=== PATIENT | female | born 1930 | race Caucasian/White ===

== ENCOUNTER 2016-12-27 18:26 | Inpatient (IN) | payer OTHER, MEDICAID ==
[~2016-12-27] VITALS: Ht 160 cm; Wt 62.6 kg
[2016-12-27 18:26] VITALS: BP 114/61; PULSE 78; RESP 16; TEMP 98.2; O2SAT 95
--- NOTE | 2016-12-27 18:26 | NUR ---
Patient to ER bed 6 to gown for evaluation. Side rails up. Report given to CARLENE TERAN.
--- NOTE | 2016-12-27 18:26 | NUR ---
Regina tejeda in ED - 12/27/16 at 1902 by PRATIK KATEY DURAN at bedside examining patient.
--- NOTE | 2016-12-27 18:35 | NUR ---
ER at bedside examining patient.
--- NOTE | 2016-12-27 18:38 | NUR ---
ER Dr.DEVESH DURAN at bedside examining patient.
--- NOTE | 2016-12-27 18:38 | NUR ---
Pt brought in by BLS transport in stable condition. Pt sent by Dr. Reyes from [facility] for medical eval for poor circulation to left hand and failure to thrive. Pt present contracted bilat upper extremities. Pt has a hx of anemia, HTN, hypothyroid, encephalopathy. -sob -chest pain. No acute distress noted at this time, will continue to monitor
[2016-12-27] MEDS ORDERED: NS 500 ML IV SCH (18:42)
[2016-12-27 19:25] LABS: BLOOD GAS PH 7.435 (7.350-7.450)
[2016-12-27 19:26] LABS: ABG TOTAL HEMOGLOBIN 12.6 G/dL (12.0-18.0); BLOOD GAS COHb% 0.3 % (0.5-1.5); BLOOD GAS HHB 7.6 % (0.0-6.0); BLOOD O2Hb% 91.9 % (94.0-97.0)
[2016-12-27 19:48] LABS: BASOPHILS # (AUTO) 0.2 K/uL (0.0-0.2); BASOPHILS % (AUTO) 1.8 % (0.0-2.0); EOSINOPHILS # (AUTO) 0.3 K/uL (0.0-0.4); EOSINOPHILS % (AUTO) 3.5 % (0.0-4.0); HEMATOCRIT 36.3 % (36-48); HEMOGLOBIN 12.1 g/dL (12.0-16.0); LYMPHOCYTES # (AUTO) 1.7 K/uL (1.0-5.5); LYMPHOCYTES % (AUTO) 19.5 % (20.5-51.5); MEAN CORPUSCULAR HEMOGLOBIN 31 pg (27-31); MEAN CORPUSCULAR HGB CONC 33 % (32-36); MEAN CORPUSCULAR VOLUME 94 fL (79.0-98.0); MONOCYTES # (AUTO) 0.5 K/uL (0.0-1.0); MONOCYTES % (AUTO) 5.1 % (1.7-9.3); NEUTROPHILS # (AUTO) 6.2 K/uL (1.8-7.7); NEUTROPHILS % (AUTO) 70.1 % (40.0-70.0); PLATELET COUNT (AUTO) 353 K/uL (130-430); RED BLOOD CELL COUNT(AUTO) 3.88 MIL/uL (4.2-6.2); RED CELL DISTRIBUTION WIDTH 13.6 % (9.0-15.0); WHITE BLOOD COUNT (AUTO) 8.9 K/uL (4.8-10.8)
[2016-12-27 19:54] LABS: ANION GAP 8 (5-15); CALCIUM 9.4 mg/dL (8.4-11.0); CHLORIDE 98 mmol/L (98-107); CREATININE 1.01 mg/dL (0.55-1.30); GLUCOSE 105 mg/dL (70-99); POTASSIUM 4.7 mmol/L (3.5-5.1); SODIUM SERUM 131 mmol/L (136-145); UREA NITROGEN, BLOOD 28 mg/dL (8-21)
[2016-12-27 19:59] LABS: ALANINE AMINOTRANSFERASE 50 U/L (12-78); ALBUMIN 3.5 g/dL (3.4-4.8); ASPARTATE AMINOTRANSFERASE 26 U/L (10-37); TOTAL BILIRUBIN 0.4 mg/dL (0.0-1.0)
[2016-12-27 20:01] LABS: INR 0.9 (0.8-1.2); PROTHROMBIN TIME 9.7 SECS (9.5-12.5)
[2016-12-27] MEDS ORDERED: ASCO500T20 GT (20:24)
[2016-12-27] MEDS ORDERED: FERR220S3 GT (20:25)
[2016-12-27] MEDS ORDERED: FAMO40TA7 GT (20:27)
[2016-12-27] MEDS ORDERED: SODI1TAB3 GT (20:27)
[2016-12-27] MEDS ORDERED: DOCU-144 GT (20:28)
[2016-12-27] MEDS ORDERED: LEVO50TA8 GT (20:28)
[2016-12-27] MEDS ORDERED: MEMA10TA12 GT (20:30)
[2016-12-27] MEDS ORDERED: HYDR-1189 GT (20:30)
[2016-12-27] MEDS ORDERED: DICL50TA9 GT (20:31)
[2016-12-27] MEDS ORDERED: MAGN400O4 GT (20:33)
[2016-12-27] MEDS ORDERED: NA P118E RC (20:34)
[2016-12-27] MEDS ORDERED: DULR10 RC (20:34)
[2016-12-27] MEDS ORDERED: ACET-2165 GT (20:35)
[2016-12-27] MEDS ORDERED: CAT.1 GT (20:36)
[2016-12-27] MEDS ORDERED: ACET160S2 GT (20:39)
[2016-12-27] MEDS ORDERED: LOSA50TA3 GT (20:40)
[2016-12-27] MEDS ORDERED: MULT GT (20:40)
[2016-12-27] MEDS ORDERED: CALC500T3 GT (20:40)
[2016-12-27] MEDS ORDERED: PETR5OIN TP (20:42)
[2016-12-27] MEDS ORDERED: NA PHOS,M-B/NA PHOS,DI-BA 118 ML (FLEET ENEMA) RC ONE (21:00)
[2016-12-27 21:11] LABS: BILIRUBIN,URINE NEGATIVE (NEGATIVE); BLOOD, URINE NEGATIVE (NEGATIVE); CLARITY/URINE CLEAR (CLEAR); COLOR,URINE YELLOW (YELLOW); GLUCOSE,URINE NEGATIVE (NEGATIVE); KETONES,URINE NEGATIVE (NEGATIVE); LEUKOCYTE ESTERASE ,URINE NEGATIVE (NEGATIVE); NITRITE, URINE NEGATIVE (NEGATIVE); PROTEIN URINE NEGATIVE (NEGATIVE); UROBILINOGEN,URINE 0.2 (0.2-1.0)
--- NOTE | 2016-12-27 21:20 | NUR ---
Patient will be admitted to care of Dr. Nader Orr. Admitted to med surg unit. Will go to room 102-a. Belongings list completed. Summary report printed. Report given to PARUL Owusu.
--- NOTE | 2016-12-27 21:21 | NUR ---
CONSULTATION PAGED REASON FOR CONSULTATION:ABDOMINAL PAIN WAS CONSULT CALLED?Y PERSON WHO WAS NOTIFIED:SNEHA CONSULTING PHYSICIAN:ANA PAULA ELIZONDO VP HR DIVERSITY SPECIALTY:GI VP HR DIVERSITY PHONE NUMBER:[phone]
--- NOTE | 2016-12-27 21:21 | NUR ---
ADMISSION NOTE Received patient from ER via gurney. Patient admitted with diagnosis of Abdominal pain. Patient is awake. Patient oriented to hospital room, call light, toileting, pain management and safety. Patient informed that Darlene will be her nurse and that their room number is 102A. Personal belongings checked and Belongings List documented. Call light within reach.
--- NOTE | 2016-12-27 21:25 | NUR ---
CONSULTATION PAGED REASON FOR CONSULTATION:POOR CIRCULATION TO LEFT HAND WAS CONSULT CALLED?Y PERSON WHO WAS NOTIFIED:CAMILLE CONSULTING PHYSICIAN:AJIT AN SPECTROGRAPH OPERATOR SPECIALTY:PLASTIC SURGEON SPECTROGRAPH OPERATOR PHONE NUMBER:[phone]
--- NOTE | 2016-12-27 21:31 | NUR ---
initial note pt. received, non verbal. VSS. IV access to left ac. no redness or swelling at the site. G tube noted, no redness or swelling around the site. dressing is dry. will start feeding as ordered. 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 heels are elevated and foam boots are in place. some redness on the heels, but skin is intact. noble catheter draining to gravity. pt. is on air mattress. will continue to monitor for changes. safety and fall precautions in place. call light in reach, bed in lowest position.
[2016-12-27 21:37] VITALS: BP 137/80; PULSE 80; RESP 18; TEMP 96.6; O2SAT 94
--- NOTE | 2016-12-27 22:01 | NUR ---
rounds fleet enema done, pt. had x1 BM. no s.s of distress or sob. no facial grimacing indicating any pain. will continue to monitor. heels elevated, g tube feeding infusing well. call light in reach, bed in lowest position.
[2016-12-27] MEDS ORDERED: cloNIDine HCL 0.1 MG TABLET GT PRN (23:45)
[2016-12-27] MEDS ORDERED: ASCORBIC ACID 500 MG TABLET GT ONE (23:45)
[2016-12-27] MEDS ORDERED: HYDROcodone/ACETAMIN 5-325 MG TAB (NORCO/ VICODIN) GT PRN (23:45)
[2016-12-27] MEDS ORDERED: MILK OF MAGNESIA 30 ML UDC GT PRN (23:45)
[2016-12-27] MEDS ORDERED: ACETAMINOPHEN 325 MG TABLET GT PRN (23:45)
[2016-12-27] MEDS ORDERED: NA PHOS,M-B/NA PHOS,DI-BA 118 ML (FLEET ENEMA) RC PRN (23:45)
[2016-12-27] MEDS ORDERED: BISACODYL 10 MG/SUPPOSITORY RC PRN (23:45)
--- NOTE | 2016-12-27 23:51 | NUR ---
CONSULTATION PAGED REASON FOR CONSULTATION:CONTRACTURES WAS CONSULT CALLED?Y PERSON WHO WAS NOTIFIED:CLAIRE CONSULTING PHYSICIAN:BRIAN LUCERO STRATEGIC PLANNING ANALYST SPECIALTY:NEURO STRATEGIC PLANNING ANALYST PHONE NUMBER:[phone]
--- NOTE | 2016-12-28 00:10 | NUR ---
ROUNDS PT. RESTING IN BED. NO FACIAL GRIMACING INDICATING ANY PAIN. NO S/S OF SOB OR DISTRESS. TUBE FEEDING INFUSING WELL ORDERED. HEELS ELEVATED ON PILLOW. WILL CONTINUE TO MONITOR. SAFETY AND FALL PRECAUTIONS IN PLACE. CALL LIGHT IN REACH. BED IN LOWEST POSITION.
[2016-12-28 00:14] VITALS: BP 122/60; PULSE 71; RESP 18; TEMP 96.5; O2SAT 95
[2016-12-28] MEDS ORDERED: LACTULOSE 20 GM/30 ML UDC PO ONE (00:15)
--- NOTE | 2016-12-28 02:31 | NUR ---
PAGED PAGED BRY FLYNN AT [phone] SPOKE WITH CLAIRE.
[2016-12-28 04:00] VITALS: BP 127/70; PULSE 74; RESP 18; TEMP 97.3; O2SAT 94
--- NOTE | 2016-12-28 04:05 | NUR ---
ROUNDS PT. IN BED WITH EYES OPEN. NO FACIAL GRIMACING INDICATING ANY PAIN. NO SIGNS OF ACUTE DISTRESS. HEELS ELEVATED ON PILLOW. WILL CONTINUE TO MONITOR. CALL LIGHT IN REACH, BED IN LOWEST POSITION.
--- NOTE | 2016-12-28 05:55 | NUR ---
MD CALL DR. DURAN WAS PAGED IN ORDER TO CLARIFY G TUBE FEEDING HE CANCELLED THE ORDER FOR THE ONE HE INITIALLY PUT IN. NO ACTIVE DIETARY ORDER EXISTS AT THIS TIME. WILL AWAIT HIS CALL BACK.
--- NOTE | 2016-12-28 06:35 | NUR ---
PT. RESTING IN BED WITH EYES OPEN. NO FACIAL GRIMACING INDICATING PAIN. G TUBE FEEDING INFUSING WELL. DR. DURAN HAS NOT CALLED BACK TO VERIFY TUBE FEEDING ORDER. HEELS FLOATING.ALL NECESSARY NEEDS WERE MET, SAFETY AND FALL PRECAUTIONS MAINTAINED. WILL ENDORSE CARE TO AM NURSE. CALL LIGHT IN REACH.
[2016-12-28 07:05] LABS: BASOPHILS # (AUTO) 0.1 K/uL (0.0-0.2); EOSINOPHILS # (AUTO) 0.3 K/uL (0.0-0.4); EOSINOPHILS % (AUTO) 2.9 % (0.0-4.0); HEMOGLOBIN 11.1 g/dL (12.0-16.0); LYMPHOCYTES # (AUTO) 1.2 K/uL (1.0-5.5); LYMPHOCYTES % (AUTO) 14.2 % (20.5-51.5); MEAN CORPUSCULAR HEMOGLOBIN 32 pg (27-31); MEAN CORPUSCULAR HGB CONC 34 % (32-36); MEAN CORPUSCULAR VOLUME 95 fL (79.0-98.0); MONOCYTES # (AUTO) 0.4 K/uL (0.0-1.0); MONOCYTES % (AUTO) 4.7 % (1.7-9.3); NEUTROPHILS # (AUTO) 6.7 K/uL (1.8-7.7); NEUTROPHILS % (AUTO) 77.2 % (40.0-70.0); PLATELET COUNT (AUTO) 295 K/uL (130-430); RED BLOOD CELL COUNT(AUTO) 3.49 MIL/uL (4.2-6.2); RED CELL DISTRIBUTION WIDTH 13.6 % (9.0-15.0); WHITE BLOOD COUNT (AUTO) 8.7 K/uL (4.8-10.8)
--- NOTE | 2016-12-28 07:20 | NUR ---
initial notes: pt on bed sleeping. stable. gtube in placed. report received at bedside.
[2016-12-28 07:28] LABS: ANION GAP 8 (5-15); CALCIUM 8.9 mg/dL (8.4-11.0); CHLORIDE 101 mmol/L (98-107); CREATININE 0.96 mg/dL (0.55-1.30); GLUCOSE 127 mg/dL (70-99); POTASSIUM 4.6 mmol/L (3.5-5.1); SODIUM SERUM 134 mmol/L (136-145); UREA NITROGEN, BLOOD 26 mg/dL (8-21)
[2016-12-28 07:53] LABS: THYROID STIMULATING HORMONE 1.89 uIu/mL (0.34-4.82)
--- NOTE | 2016-12-28 08:25 | NUR ---
Nutrition Note [place] scale of 10 noted. Pt admitted with abd pain. Diet: TF Isosource 1.5 at 45 ml/hr, Free Water Flush: 10 ml via G-tube BMI: 24.4 kg/m2 RD to follow up per nutrition care standards.
[2016-12-28 08:48] VITALS: BP 143/78; PULSE 82; RESP 14; TEMP 97.2; O2SAT 96
[2016-12-28] MEDS ORDERED: DOCUSATE SODIUM 100 MG CAPSULE PO SCH (09:00)
--- NOTE | 2016-12-28 10:00 | NUR ---
gtube order: Dr. Orr returned call and clarified the gtube order.
[2016-12-28] MEDS: LACTULOSE 20 GM/30 ML UDC PO SCH ×3 (10:17→21:45)
[2016-12-28] MEDS: ASCORBIC ACID 500 MG TABLET GT SCH (10:18)
[2016-12-28] MEDS: DICLOFENAC SODIUM 25 MG TABLET.DR GT SCH ×2 (10:18→21:45)
[2016-12-28] MEDS: SODIUM CHLORIDE 500 MG TABLET GT SCH (10:18)
[2016-12-28] MEDS: FAMOTIDINE 20 MG TABLET GT SCH ×2 (10:18→21:45)
[2016-12-28] MEDS: MEMANTINE HCL 5 MG TABLET GT SCH ×2 (10:19→21:45)
[2016-12-28] MEDS: LOSARTAN POTASSIUM 50 MG TABLET (COZAAR) GT SCH (10:19)
[2016-12-28] MEDS: CALCIUM 500 MG/TAB GT SCH ×2 (10:19→21:45)
[2016-12-28] MEDS: MULTIVITAMINS TAB 1 TABLET GT SCH (10:19)
[2016-12-28] MEDS: LEVOTHYROXINE SODIUM 0.05 MG TABLET GT SCH (10:19)
[2016-12-28] MEDS ORDERED: COMMUNICATION ORDER XX ONE (12:00)
--- NOTE | 2016-12-28 12:00 | NUR ---
rounds: pt on bed awake, non verbal. no distress noted.
[2016-12-28 12:22] VITALS: Ht 160 cm; Wt 62.6 kg
[2016-12-28 13:03] VITALS: BP 137/71; PULSE 86; RESP 17; TEMP 97.8; O2SAT 97
--- NOTE | 2016-12-28 15:00 | NUR ---
rounds: pt on bed sleeping. no distress noted.
[2016-12-28 16:00] VITALS: BP 167/81; PULSE 88; RESP 18; TEMP 97.8; O2SAT 96
--- NOTE | 2016-12-28 16:06 | NUR ---
CALLED DR AJIT SOSA, RE: POOR BLOOD CIRCULATION OF THE HAND, TO REMIND OF THE CONSULT GIVEN TO HIM YESTERDAY. SPOKE TO JOVANY
--- NOTE | 2016-12-28 17:00 | NUR ---
Pj rounds: Dr. Brown seen the pt with new order.
[2016-12-28 19:30] VITALS: BP 141/60; PULSE 85; RESP 18; TEMP 99.2
--- NOTE | 2016-12-28 19:30 | NUR ---
INITIAL NOTE Patient resting on the bed with eyes closed. Respiration even and unlabored. No acute distress. Skin warm and dry to touch. Abd distended but soft with bowel sound present. SL intact to LAC, no redness, no swelling. GT intact, patent, no residual. On Isosource 1.5 at 45ml/hr, tolerated well. HOB elevated. F/C intact, drain gravity with alex color of urine. Safety measure maintained. Bed in low position, side rails up, bed alarm on. Call light within reached. Will continue to monitor.
--- NOTE | 2016-12-28 19:30 | NUR ---
closing notes: pt on bed. stable. i.v. access patent. gtube in placed. report given at bedside.
--- NOTE | 2016-12-28 21:20 | NUR ---
ROUND Patient resting on the bed with eyes closed. No acute distress. Respiration even and unlabored. HOB is elevated. Continue on GTF. Safety measure maintained. Call light within reached. Bed in low position, side rails up, bed alarm on. Will continue to monitor.
--- NOTE | 2016-12-28 23:25 | NUR ---
ROUND Patient resting on the bed comfortable. No acute distress. Respiration even and unlabored. HOB is elevated. Continue on GTF, tolerated well. Safety measure maintained. Call light within reached. Bed in low position, side rails up, bed alarm on. Will continue to monitor.
[2016-12-29 00:25] VITALS: BP 116/50; PULSE 73; RESP 20; TEMP 97.8; O2SAT 97
--- NOTE | 2016-12-29 01:10 | NUR ---
ROUND Patient sleeping comfortable. No acute distress. Respiration even and unlabored. HOB is elevated. Safety measure maintained. Call light within reached. Bed in low position, side rails up, bed alarm on. Will continue to monitor.
--- NOTE | 2016-12-29 03:07 | NUR ---
ROUND Patient sleeping comfortable. Respiration even and unlabored. HOB is elevated. Continue on GT feeding, tolerated well. Safety measure maintained. Bed in low position, side rails up, bed alarm on. Call light within reached. Will continue to monitor.
[2016-12-29 03:41] VITALS: BP 100/58; PULSE 74; RESP 18; TEMP 97; O2SAT 97
--- NOTE | 2016-12-29 04:26 | NUR ---
ROUND Patient sleeping comfortable. Respiration even and unlabored. HOB is elevated. Safety measure maintained. Bed in low position, side rails up, bed alarm on. Call light within reached. Will continue to monitor.
--- NOTE | 2016-12-29 05:29 | NUR ---
ROUND Patient sleeping comfortable. Respiration even and unlabored. HOB is elevated. Continue on GT feeding, tolerated well. No s/s of aspiration. Safety measure maintained. Bed in low position, side rails up, bed alarm on. Call light within reached. Continue to monitor.
--- NOTE | 2016-12-29 06:54 | NUR ---
CLOSING NOTE Patient resting on the bed with eyes closed. Respiration even and unlabored. No acute distress. Skin warm and dry to touch. SL intact to LAC, no redness, no swelling. GT intact, patent, no residual. On Isosource 1.5 at 45ml/hr, tolerated well. No s/s of aspiration. No nausea or vomiting noted. HOB elevated. F/C intact, drain gravity with alex color of urine. All meeds met. Hourly rounding during shift. Safety measure maintained. Bed in low position, side rails up, bed alarm on. Call light within reached. Will endorse to morning shift nurse.
--- NOTE | 2016-12-29 07:20 | NUR ---
initial notes: pt on bed sleeping. no distress noted. i.v. access patent. gtube in placed. scd in placed. report received at bedside.
[2016-12-29 07:52] LABS: ALBUMIN 3.1 g/dL (3.4-4.8); BILIRUBIN,DIRECT 0.1 mg/dL (0.0-0.3); TOTAL BILIRUBIN 0.2 mg/dL (0.0-1.0); TOTAL PROTEIN, SERUM 6.9 g/dL (6.4-8.3)
[2016-12-29 08:00] VITALS: BP 131/72; PULSE 14; RESP 14; TEMP 98.2; O2SAT 94
[2016-12-29] MEDS: DOCUSATE SODIUM 100 MG/10 ML UDC GT SCH (09:23)
[2016-12-29] MEDS: LACTULOSE 20 GM/30 ML UDC PO SCH ×3 (09:23→21:29)
[2016-12-29] MEDS: FAMOTIDINE 20 MG TABLET GT SCH ×2 (09:24→21:30)
[2016-12-29] MEDS: MEMANTINE HCL 5 MG TABLET GT SCH ×2 (09:24→21:30)
[2016-12-29] MEDS: SODIUM CHLORIDE 500 MG TABLET GT SCH (09:24)
[2016-12-29] MEDS: LOSARTAN POTASSIUM 50 MG TABLET (COZAAR) GT SCH (09:25)
[2016-12-29] MEDS: ASCORBIC ACID 500 MG TABLET GT SCH (09:25)
[2016-12-29] MEDS: DICLOFENAC SODIUM 25 MG TABLET.DR GT SCH ×2 (09:25→21:30)
[2016-12-29] MEDS: CALCIUM 500 MG/TAB GT SCH ×2 (09:25→21:29)
[2016-12-29] MEDS: MULTIVITAMINS TAB 1 TABLET GT SCH (09:26)
[2016-12-29] MEDS: LEVOTHYROXINE SODIUM 0.05 MG TABLET GT SCH (09:26)
--- NOTE | 2016-12-29 09:30 | NUR ---
rounds: pt placed on NPO for the abdomen ultrasound.
--- NOTE | 2016-12-29 10:24 | NUR ---
DISCHARGE PLANNING DC planning order back to SNF possibly today. Faxed SNF referral [phone]. Will follow up. Addendum: 12/29/16 at 1305 by Barbi Panda DP DC order for [place] evaluation and transfer. Faxed DC Planning order to [facility] office [phone] notified Yeimi Rdz who will evaluate patient today. Addendum: 12/29/16 at 1703 by Barbi Panda DP Spoke with Yeimi Rdz who stated patient does not meet LTAC level of care. Called [facility] spoke with Sin in admitting who stated currently under review and stated will follow up with MD due to MD telling facility patient being placed at LTAC. Jose Avor both made aware patient does not meet criteria for LTAC and will follow up with . Pending bed assignment at [facility]. Meanwhile; Faxed SNF referral to [phone]. Spoke with Greta who will come and evaluate patient.
--- NOTE | 2016-12-29 11:00 | NUR ---
rounds: pt on bed sleeping. no distress noted.
[2016-12-29 11:27] VITALS: BP 131/73; PULSE 76; RESP 19; TEMP 96.2; O2SAT 93
--- NOTE | 2016-12-29 12:00 | NUR ---
Pj rounds: informed Dr. Orr patient having blood in the urine with an order for consult.
--- NOTE | 2016-12-29 13:04 | NUR ---
CALLED UROLOGY CONSULT TO [facility], RE: HEMATURIA. PAGED HIM DIRECTLY, CALLED AGAIN HIS OFFICE. SPOKE TO COURTNEY
--- NOTE | 2016-12-29 13:30 | NUR ---
UA: UA sample sent to lab for urinalysis.
--- NOTE | 2016-12-29 13:34 | NUR ---
CALLED AGAIN DR. AJIT SOSA, F/U CONSULT ON HIS 3RD DAY NOT SEEING OR ACKNOWLEDGING THE CONSULT. SPOKE TO THUY
--- NOTE | 2016-12-29 14:23 | NUR ---
CALLED AGAIN THE OFFICE OF DR AJIT SOSA AND WAS INFORMED BY THE CATEGORY ANALYST BLU THAT DR SOSA IS OUT OF AREA AND MIGHT BE ABLE TO SEE THE PT ON SUNDAY. WILL CALL ATTENDING Elton GEORGES DR
[2016-12-29 15:37] LABS: BILIRUBIN,URINE 1+ (NEGATIVE); BLOOD, URINE 3+ (NEGATIVE); CLARITY/URINE CLOUDY (CLEAR); GLUCOSE,URINE NEGATIVE (NEGATIVE); KETONES,URINE TRACE (NEGATIVE); LEUKOCYTE ESTERASE ,URINE 3+ (NEGATIVE); NITRITE, URINE POSITIVE (NEGATIVE); PH,URINE 6.5 (5.0-8.0); PROTEIN URINE 2+ (NEGATIVE)
[2016-12-29 15:38] LABS: COLOR,URINE BROWN (YELLOW)
[2016-12-29 15:59] VITALS: BP 143/79; PULSE 85; RESP 16; TEMP 96.9; O2SAT 95
--- NOTE | 2016-12-29 16:00 | NUR ---
Pj informed: Informed Dr. Orr of the consult Dr. Martin out of the area. He said to refer to caser in for rehab. Informed Silverlight Developer.
[2016-12-29 17:30] LABS: BACTERIA,URINE MANY /HPF (None Seen); RBC,URINE >100 /HPF (0-3); WBC,URINE >100 /HPF (0-3)
--- NOTE | 2016-12-29 17:30 | NUR ---
Adelina Marketing Driector: Beatty Pest Control Chemical Technician seen the pt. The [facility] called and informed the Pest Control Chemical Technician that there is no bed available for the pt. Called and Informed Dr. Orr.
[2016-12-29 17:31] LABS: MUCUS,URINE None Seen /LPF (None Seen)
[2016-12-29 17:32] LABS: URINE AMORPHOUS URATE 2+ /HPF (None Seen)
--- NOTE | 2016-12-29 17:32 | NUR ---
Rec'd call from Ken, facility administrator at [facility] [place]-He said he is willing to take pt back, however, they sent the patient to us for primary concern of bilat hand/arm contractures, which has not been addressed and that's why they sent pt to us in the first place. He asked that we inform Dr. Jose Orr of this. I called Dr. Geo Martin's exchange to ask which MD is covering for him while he is out of town, the exchange girl said he isn't out of town and will page him to our nursing unit for this consult. I let nurse Misa Phillips know this, and she will inform Dr. Geo Orr of this, also. I will leave note for our cm to f/u tomorrow on this also. Dr. Orr had called me earlier around 1640, and said Emil, facility administrator at [facility] will accept pt. dutch Landon, called and Nettie will come evaluate pt tonight.
--- NOTE | 2016-12-29 18:00 | NUR ---
Dr. aMrtin called: Dr. Martin, consult, stated he is not accepting in pt visits in [place]. The pt can go to his wound office. He also said he is the plastic and hand surgeon. He is not a vascular surgeon. He gave his cell number to pass it to Dr. Orr. Called and informed Dr. Orr.
[2016-12-29 19:10] VITALS: BP 119/65; PULSE 68; RESP 19; TEMP 97.8; O2SAT 95
--- NOTE | 2016-12-29 19:10 | NUR ---
INITIAL ROUNDS RECVD PT IN BED ASLEEP BUT EASILY AWAKEN BY TOUCH. PT IS NON VERBAL A/A/OX1. NO C/O PAIN AND NO DISTRESS NOTED @ THIS TIME. V/S 119/65, 97.8,68,19,95% RA. IV NOTED TO L ELBOW G 22, NO INFILTRATE, WITH GOOD BLOOD RETURN. GTUBE PATENT WITH ISOSOURCE RUNNING @45CC/HR. F/C NOTED WITH SHERRIE COLORED URINE NOTED IN THE BAG. BUE ARE CONTRACTED AND BLE ARE WEAK. BED IN LOW POSITION WITH CALL LIGHT WITHIN REACH; WILL CONT TO MONITOR.
--- NOTE | 2016-12-29 19:30 | NUR ---
closing notes: pt on bed sleeping. no distress noted. needs attended. report given at bedside.
[2016-12-29] MEDS ORDERED: LEVOFLOXACIN 250 MG/D5W 50 ML IV SCH (21:00)
--- NOTE | 2016-12-29 21:10 | NUR ---
PARTIAL BED BATH PARTIAL BED BATH WAS RENDERED WITH ASSISTANCE FROM STACIA. NO S/S OF PAIN OR ANY DISTRESS, WILL CONT TO MONITOR.
--- NOTE | 2016-12-29 23:10 | NUR ---
ROUNDS PT IS RESTING COMFORTABLY @ THIS TIME. NO C/O PAIN AND NO DISTRESS NOTED. BED IN LOW POSITION WITH CALL LIGHT WITHIN REACH; WILL CONT TO MONITOR.
[2016-12-30] VITALS: BP 131/94; PULSE 74; RESP 16; TEMP 98; O2SAT 96
--- NOTE | 2016-12-30 01:10 | NUR ---
ROUNDS PT IS RESTING COMFORTABLY @ THIS TIME. REPOSITIONED IN BED FOR COMFORT. NO C/O PAIN AND NO DISTRESS NOTED. BED IN LOW POSITION WITH CALL LIGHT WITHIN REACH; WILL CONT TO MONITOR.
--- NOTE | 2016-12-30 02:20 | NUR ---
BED BATH PT HAD A LG AMOUNT OF WATERY STOOL. PARTIAL BED BATH WAS RENDERED. NO C/O PAIN AND NO SOB NOTED. CALL LIGHT WITHIN REACH, WILL CONT TO MONITOR.
[2016-12-30 04:00] VITALS: BP 136/74; PULSE 77; RESP 16; TEMP 98.3; O2SAT 96
--- NOTE | 2016-12-30 04:20 | NUR ---
ROUNDS PT IS RESTING COMFORTABLY @ THIS TIME. NO S/S OF PAIN AND NO RESPI DISTRESS NOTED. CALL LIGHT WITHIN REACH, WILL CONT TO MONITOR.
--- NOTE | 2016-12-30 06:15 | NUR ---
AM CARE PERFORMED FRANCHESCA CARE AND ORAL TO PT. NO C/O PAIN AND NO DISTRESS NOTED. CALL LIGHT WITHIN REACH, WILL CONT TO MONITOR.
--- NOTE | 2016-12-30 06:51 | NUR ---
FINAL NOTES PT IS RESTING @ THIS TIME. NO S/S OF PAIN OR DISTRESS NOTED. V/S ARE WNL. ALL NEEDS MET AND ANTICIPATED BY NOC NURSES. BED IN LOW POSITION WITH CALL LIGHT WITHIN REACH. ENDORSED.
[2016-12-30 07:48] LABS: ALBUMIN 3.2 g/dL (3.4-4.8); BILIRUBIN,DIRECT 0.2 mg/dL (0.0-0.3); TOTAL BILIRUBIN 0.4 mg/dL (0.0-1.0)
--- NOTE | 2016-12-30 08:00 | NUR ---
AM Initial Notes Pt aaox1, non verbal but makes sounds. No signs of facial grimacing for pain or discomfort. No sob, difficulty breathing or distress noted. G-tube in place with 20cc residual noted. G-tube is clamped for abdominal xray. Greco catheter in place. Bilateral hands are contracted. Repositioned and kept comfortable. Fall and safety precautions enforced. Will monitor.
[2016-12-30 08:15] VITALS: BP 162/82; PULSE 77; RESP 20; TEMP 98.4; O2SAT 95
--- NOTE | 2016-12-30 10:00 | NUR ---
Rounds Pt asleep. No signs of facial grimacing for pain or discomfort. No distress noted. Repositioned and kept comfortable. Will monitor.
[2016-12-30] MEDS: LACTULOSE 20 GM/30 ML UDC PO SCH ×2 (10:42→18:01)
[2016-12-30] MEDS: SODIUM CHLORIDE 500 MG TABLET GT SCH (10:42)
[2016-12-30] MEDS: DICLOFENAC SODIUM 25 MG TABLET.DR GT SCH (10:42)
[2016-12-30] MEDS: DOCUSATE SODIUM 100 MG/10 ML UDC GT SCH (10:42)
[2016-12-30] MEDS: ASCORBIC ACID 500 MG TABLET GT SCH (10:43)
[2016-12-30] MEDS: MULTIVITAMINS TAB 1 TABLET GT SCH (10:43)
[2016-12-30] MEDS: CALCIUM 500 MG/TAB GT SCH (10:43)
[2016-12-30] MEDS: MEMANTINE HCL 5 MG TABLET GT SCH (10:43)
[2016-12-30] MEDS: FAMOTIDINE 20 MG TABLET GT SCH (10:44)
[2016-12-30] MEDS: LOSARTAN POTASSIUM 50 MG TABLET (COZAAR) GT SCH (10:44)
[2016-12-30] MEDS: LEVOTHYROXINE SODIUM 0.05 MG TABLET GT SCH (10:44)
--- NOTE | 2016-12-30 11:00 | NUR ---
CM DC PLANNING CM EVALUATED Pt IN ROOM THIS A.M. TO ASCERTAIN THE AMOUNT OF DIMINISHED CIRCULATION FROM Pt's DOMINGO. UPPER EXTREMITY CONTRACTURES. BOTH UPPER EXTREMITIES WERE VERY TENSE WITH Pt's HANDS NEAR HER MOUTH; SKIN COLOR WAS PINK AND Pt HAS STRONG BRACHIAL AND RADIAL PULSES; THERE WAS MINIMAL SWELLING NOTED THAT COULD INDICATE A DECREASE IN VENOUS CIRCULATION. IT WAS UNDERSTOOD THAT [facility] HAD AN AVAILABLE BED FOR THE Pt. BOB LIAISON/SIMONE WAS HERE TO EVALUATE Pt FOR BOB ADMISSION. HOWEVER, Pt IS ONLY ON ONE IV ABX, LEVAQUIN, FOR UTI; AND, SHE DOESN'T MEET CRITERIA FOR LTAC ADMISSION. CM CONTACTED LUCI AT [facility] AND DISCUSSED Pt COMING BACK THERE OR GOING TO ANOTHER FACILITY. PER LUCI, THE NEPHEW, ANGI DYSON, WANTS THE Pt TO BE AT [facility]; AND, CM WOULD NEED TO TALK WITH HIM PRIOR TO [facility] SENDING THE Pt TO ANOTHER FACILITY. PER LUCI, AND HER CONTACT WITH KARI AT FACILITY, IF ANOTHER FACILITY WOULD ACCEPT THE Pt, IT WOULD BE OK FOR Pt TO GO TO A DIFFERENT FACILITY IF NEPHEW WAS IN AGREEMENT. CM CONTACTED [facility]; UNABLE TO REMEMBER NAME OF WHO I SPOKE WITH (WAS LIKELY THE CLINICAL NURSING COORDINATOR); BUT CM UNDERSTOOD THAT THEY DO NOT HAVE ANY BEDS TODAY; WILL LIKELY NOT HAVE ANY BEDS UNTIL SUNDAY; AND, THEY DO NOT HAVE CENTRIFUGAL CASTING MACHINE TENDER CARE BEDS --> THEIR PLAN WAS TO LOCATE A CENTRIFUGAL CASTING MACHINE TENDER CARE FACILITY FOR THE PATIENT AND ULTIMATELY TRANSFER HER THERE. SHARMIN CALLED TO DR. TEJA SOSA, PLASTIC SURGERY, TO SPEAK WITH HIM ABOUT HOW Pt COULD BE EVALUATED BY HIM AN OUT-Pt. MD WAS NOT AVAILABLE; LEFT MESSAGE REQUESTING A CALL BACK. CM DISCUSSED DISCHARGE POC WITH CM DIRECTOR/DEWAYNE ABOUT THERE BEING NO BEDS AVAILABLE AT [facility]; AND, PER DEWAYNE'S RECOMMENDATION, SHARMIN/MIA CONTACTED KARI FROM [facility] AND LEFT MESSAGE AT [phone] TO DISCUSS DC PLAN WITH HIM; THIS MESSAGE WAS LEFT AROUND 1-1:[address] TEJA DURAN WAS AT UNIT TO EVAL Pt; SPOKE WITH SHARMIN/MIA ABOUT DC POC; AND, DR. TOMAS WAS ALSO PRESENT TO DISCUSS THE Pt's CONTRACTURES FROM A SURGICAL & VASCULAR STANDPOINT. DR. DURAN IS OK WITH Pt RETURNING BACK TO SNF[facility] SINCE THERE ARE NO BEDS AT [facility]; AND, HAVING OUT-Pt FOLLOW-UP WITH DR. SOSA FOR THE MANAGEMENT OF THE CONTRACTURES. PER DR. DURAN, Pt CAN BE DC'D TODAY WITH SAME MEDS WHEN BED HAS BEEN OBTAINED. CM WAS WITH DR. TOMAS WHEN HE EVALUATED THE Pt. DR. TOMAS STATED HE HAD PREVIOUSLY AMPUTATED ONE OF THE Pt's FINGERS DUE TO ULCERATION FROM A CONTRACTURE. DR. TOMAS STATED THERE ARE NO CURRENT ULCERATIONS VISIBLE FROM THE Pt's CONTRACTURES; HIS RECOMMENDATION WOULD BE FOR THE ARMS TO BE AMPUTATED IF THEY ARE CAUSING A PROBLEM FOR SKIN CARE MGMT. DR. TOMAS ALSO CALLED TO THE Pt's NEPHEW/ANGI DYSON TO DISCUSS HIS ASSESSMENT AND RECOMMENDATION AND DR. TOMAS STATED THE NEPHEW IS NOT INTERESTED IN THE Pt HAVE ANY OTHER AMPUTATIONS AT THIS TIME. 1553: NO CALL BACK FROM [employer]; CM SENT TEXT MESSAGE TO [employer] TO CONTACT THIS CM ABOUT TRANSFERRING Pt BACK TO [facility] TODAY. 1555: CM RECEIVED A CALL BACK FROM DR. 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 DR. SOSA STATED HE HAD NOT SPOKEN WITH ANY OF THE Pt's MDs ABOUT THE REFERRAL. ADDITIONALLY, DR. SOSA STATED HE DOES NOT DO IN-Pt CONSULTATIONS DUE TO HIS HEAVY OFFICE WORK LOAD AND HE SEES Pts AT THE [facility]: [phone] (PROVIDED BY DR. SOSA). DR. SOSA STATED HIS RECOMMENDATION IS FOR THE SNF RESIDENCE STAFF TO CONTACT THE WOUND CARE CLINIC TO ARRANGE AN OUT-Pt APPOINTMENT FOR Pt TO BE EVALUATED FOR HER CONTRACTURES AT THE WOUND CARE CLINIC BY DR. SOSA; SO HE CAN VISUALIZE THE CONTRACTURES; DETERMINE IF THERE ARE ANY FUSIONS OF THE BONES WHICH WOULD MAKE TENDON RELEASES IMPOSSIBLE, (LIKE THE LEFT WRIST) AND THEN HE WOULD BE ABLE TO MAKE APPROPRIATE RECOMMENDATIONS FOR POSSIBLE TREATMENT. DR. SOSA STATED THAT IT WOULD NOT BE POSSIBLE FOR THE Pt TO BE SEEN IN HIS PRIVATE OFFICE. THE WOUND CARE CLINIC HAS STAFF AND CAPACITY FOR Pts TO ARRIVE AND REMAIN ON GURNEYS FOR EVALUATION AND TREATMENT. 1601: CM RECEIVED CALL FROM KARI WHO STATED HE DID NOT RECEIVE THE VOICE MESSAGE. CM DISCUSSED CONVERSATION WITH DR. SOSA FOR OUT-Pt FOLLOW-UP; AND, THAT THERE ARE NO BEDS AT [facility]; AND, THEY DO NOT PROVIDE NURSING HOME CARE; AND, WOULD JUST TRY TO FIND ANOTHER CENTRIFUGAL CASTING MACHINE TENDER CARE FACILITY FOR Pt. PER THIS CM, THIS DOES NOT SEEM LIKE AN APPROPRIATE TRANSFER SINCE THE Pt HAS BEEN A LONG TIME RESIDENCE AT [facility]. PER KARI, HE WANTED TO TALK WITH HIS DON/CHANDRA TO HAVE HER TALK TO THIS CM TO MAKE SURE THAT THE CONTRACTURES WILL BE ADDRESSED APPROPRIATELY. THIS CM ALSO INFORMED KARI, THAT I HAD NOT SPOKEN WITH THE NEPHEW/ANGI DYSON YET BECAUSE THERE WAS NOT A DEFINITIVE POC YET; AND, I WAS WAITING TO HEAR BACK FROM DR. SOSA. 165: THIS CM RECEIVED A CALL FROM CHANDRA/BIENVENIDO AT [facility]; DISCUSSED ALL OF THE ABOVE INFORMATION WITH HER ABOUT OUT-Pt F/UP AT [facility] AND TRANSFERRING Pt BACK TO [facility]. CHANDRA REQUESTED THAT CM CONTACT [facility] TO OBTAIN THE BED FOR Pt TO RETURN AND ALSO TO UPDATE THE NEPHEW ABOUT THE POC FOR ASSESSMENT OF CONTRACTURES A OUT-Pt. 172 (APPROXIMATELY): CM ATTEMPTED TO CONTACT NEPHEW/ANGI DYSON, BUT, HE WAS NOT AVAILABLE; LEFT LENGTHY MESSAGE ABOUT POC. 1724: C/B TO KARI TO GET BED # FOR Pt AND UPDATED RE: CONVERSATION WITH CHANDRA WHO WAS IN AGREEMENT WITH ACCEPTING Pt BACK TO FACILITY. KARI STATED HE DID NOT HAVE THE Pt's BED NUMBER, HE WAS DRIVING, AND HE REQUESTED THAT CM CALL TO FACILITY TO OBTAIN THE BED NUMBER. CM CALLED TO [facility]; S/W CHG/LIZ; UPDATED HIM ON PLAN TO HAVE Pt RETURN BACK TO FACILITY; AND CM NEEDS THE Pt's ROOM NUMBER. LIZ STATED HE NEEDED TO CONTACT KARI OR CHANDRA TO GET THEIR OK FIRST AND HE WOULD CALL BACK TO CM. 1814: STILL NO CALL BACK BACK FROM LIZ AT [facility]. CM CALLED BACK; LEARNED THAT [facility] HAS NOT REALLY HAD TIME TO CALL TO KARI TO GET OK TO ACCEPT Pt BACK. SHARMIN PROVIDED [facility]Z WITH THE NURSING STATION PHONE NUMBER: [phone] TO PROVIDE BED NUMBER SO THAT Pt CAN BE TRANSFERRED BACK TONIGHT CM NEEDED TO LEAVE FOR THE DAY. 1829: TEXTED BACK TO [facility]ARI TO UPDATE THAT [facility] WILL NOT ACCEPT Pt OR PROVIDE BED NUMBER UNTIL HE TALKS WITH KARI; AND, SHARMIN ASKED KARI TO CALL HIM. REC'D TEXT BACK FROM KARI STATED THAT Pt CAN ADMIT TO Rm 14-B AND THAT [facility] WILL CONTACT THIS CM. SHARMIN CALLED TO NURSING STATION; S/W APRIL WHO STATED HE HAD NOT HEARD FROM [facility] YET; BUT, HE WILL NOTIFY THE RN WHEN HE DOES RECEIVE THE CALL. SHARMIN CALLED BACK TO Pt's NEPHBENNY/ANGI DYSON WHO ANSWERED THE PHONE THIS TIME. SHARMIN UPDATED ANGI ABOUT PLANS TO HAVE Pt's CONTRACTURES EVALUATED BY PLASTIC SURGEON/DR. CAMERON AT [facility] AN OUT-Pt. Pt WILL LIKELY BE TRANSPORTED THERE VIA AMBULANCE; AND, IT WILL LIKELY BE COVERED BY HER INSURANCE SINCE SHE IS BEDBOUND; AND, THAT [facility] WILL MAKE THE ARRANGEMENTS FOR THE OUT-Pt APPOINTMENT. ADDITIONALLY, ANGI STATED HE DOES NOT WANT THE Pt TO GO TO ANY OTHER FACILITY BUT [facility]; Pt HAS BEEN LIVING A THIS FACILITY FOR ABOUT 8 YEARS. THIS IS THE Pt's HOME; THEY ARE REQUIRED TO HOLD THE BED FOR THE Pt FOR 7 DAYS; BUT AFTER THAT THERE COULD BE THE POSSIBILITY THAT Pt MIGHT LOSE THE BED. SHARMIN PROVIDED KATHERINE WITH THE [facility]'S CONTACT NUMBERS: [phone] OR [phone] THEY WOULD BE THE Pt's ADVOCATE IF HER RESIDENCE AT THE FACILITY WERE TO BECOME IN [place] IF SHE WAS OUT MORE THAN THE 7 DAYS. THESE NOTES WERE SENT WITH Pt RECORDS TO THE FACILITY WITH MEDICAL RECORDS AT KATHERINE DYSON'S REQUEST SO THAT FACILITY STAFF WOULD KNOW NOT TO ALLOW THE Pt TO BE TRANSFERRED TO ANY OTHER SNF WITHOUT HIS PERMISSION BECAUSE [facility] IS THE Pt's HOME AND THEY KNOW HER BEST AT THIS FACILITY; AND, HE WANTS HER TO REMAIN AT THIS FACILITY. Addendum: 12/30/16 at [address] RN [address] Geo DURAN WAS NOTIFIED BY THAT Pt WILL BE DISCHARGING BACK TO [facility] AT AROUND 10:30 P.M. PER NIGHT NURSE/CAIN.
--- NOTE | 2016-12-30 12:00 | NUR ---
Rounds Pt awake, non verbal and makes sounds. No significant changes noted. Repositioned and kept comfortable. Will monitor.
[2016-12-30 12:02] VITALS: BP 149/75; PULSE 78; RESP 18; TEMP 98.6; O2SAT 98
--- NOTE | 2016-12-30 13:30 | NUR ---
Dr. Kirby GLASS doing rounds and assessing patient.
--- NOTE | 2016-12-30 14:00 | NUR ---
Rounds Pt asleep. No significant changes noted. Repositioned and kept comfortable.
--- NOTE | 2016-12-30 14:08 | NUR ---
SURGERY CONSULT WITH DR TOMAS IS AWARE, RE: POOR BLOOD CIRCULATION OF THE LEFT HAND
[2016-12-30 15:30] VITALS: BP 155/97; PULSE 80; RESP 16; TEMP 96.3; O2SAT 93
--- NOTE | 2016-12-30 16:00 | NUR ---
Rounds Pt asleep. No signs of facial grimacing for pain or discomfort. No distress noted. Repositioned and kept comfortable. Will monitor.
--- NOTE | 2016-12-30 18:30 | NUR ---
Closing notes Pt asleep but easily awakened. No significant changes noted. Repositioned and kept comfortable. Will endorse care to incoming nurse.
--- NOTE | 2016-12-30 19:00 | NUR ---
INITIAL ROUNDS RECVD PT IN BED ASLEEP BUT EASILY AWAKEN BY TOUCH. PT IS NON VERBAL A/A/OX1. NO C/O PAIN AND NO DISTRESS NOTED @ THIS TIME. V/S 136/67,68,98.0,18,95% RA. IV NOTED TO L ELBOW G 22, NO INFILTRATE, WITH GOOD BLOOD RETURN. GTUBE PATENT WITH ISOSOURCE RUNNING @45CC/HR. F/C NOTED WITH SHERRIE COLORED URINE NOTED IN THE BAG. BUE ARE CONTRACTED AND BLE ARE WEAK. BED IN LOW POSITION WITH CALL LIGHT WITHIN REACH; WILL CONT TO MONITOR.
--- NOTE | 2016-12-30 19:39 | NUR ---
paged for Kai Lundyesh, dialed . s/w [place].
[2016-12-30] MEDS ORDERED: LEVO250T20 GT (20:11)
[2016-12-30 20:15] VITALS: BP 136/63; PULSE 65; RESP 18; TEMP 97.2; O2SAT 95
--- NOTE | 2016-12-30 20:18 | NUR ---
[facility] called [facility] for BLS transport to [facility]. s/w Martin ETA is between 21:30 - 22:00.
--- NOTE | 2016-12-30 21:50 | NUR ---
PT D/C PT WAS P/U BY 2 TRANSPORT PERSONNEL TO [facility] ORDERED. PT WAS A/A,NO C/O PAIN AND NO RESPI DISTRESS NOTED DURING D/C. ALL V/S ARE WNL. GTUBE AND F/C ARE INTACT AND PATENT, IV WAS REMOVED. ALL D/C PAERS WAS TURNED OVER TO TRANSPORT. MENDY DYSON AND DR DURAN WAS CALLED AND MADE AWARE. REPORT GIVEN TO FUENTES TERAN.
[2016-12-31] MEDS ORDERED: LEVOFLOXACIN 250 MG TABLET PO SCH (10:00)
== END 2016-12-30 21:50 | DRG 389 ==
LOC: SED 18:26 → SMU 20:54
PROVIDERS: ADMIT Internal Medicine Infectious Disease; ATTEND Internal Medicine Infectious Disease
DX: K56.41 Fecal impaction (principal); N39.0 Urinary tract infection, site not specified; M62.429 Contracture of muscle, unspecified upper arm; I10 Essential (primary) hypertension; F03.90 Unspecified dementia, unspecified severity, without behavioral disturbance, psychotic disturbance, mood disturbance, and anxiety; E03.9 Hypothyroidism, unspecified; I48.91 Unspecified atrial fibrillation; Z86.73 Personal history of transient ischemic attack (TIA), and cerebral infarction without residual deficits; Z93.1 Gastrostomy status; Z89.021 Acquired absence of right finger(s)
CPT/HCPCS: 36415; 36600; 71010; 74000-TC; 76700-TC; 80048; 80053; 80076; 81000-TC; 81003; 82803-TC; 82977-TC; 83605; 83874; 84443-TC; 85025; 85610-TC; 85730-TC; 87040-TC; 87081; 87086; 87186-TC; 93005; 96360; 99285; J1956; J7040; J7050